=== PATIENT | male | born 1970 ===

== ENCOUNTER 2019-04-26 12:29 | Inpatient (IN) | payer OTHER, SELFPAY ==
[2019-04-12 07:34] VITALS: BMI 38.0
[2019-04-26] VITALS (20 sets, daily range): BP systolic 121–175; BP diastolic 71–108; PULSE 81–105; RESP 11–21; TEMP 36.1–36.7; O2SAT 93–99; BMI 36.9
--- NOTE | 2019-04-26 | DI.RAD.S_ITS ---
PROCEDURE: XR CERVICAL SPINE 2V OR 3V INDICATIONS: C5-6, C6-7 ACDF TECHNIQUE: 3 view(s) of the cervical spine were acquired. COMPARISON: [facility] Outside Film, RG, SPINE CERVICAL MIN 4VW, 01/03/2019, 15:09. [facility] Outside [facility], MR, MR CERVICAL SPINE WITHOUT CONTRAST, 01/03/2019, 15:17. [facility], CR, XR CERVICAL SPINE 2 OR 3 VIEWS, 02/28/2019, 16:35. FINDINGS: 3 intraoperative fluoroscopy images demonstrate discectomy and anterior fusion at C5-C6 and C6-C7. IMPRESSION: Discectomy and anterior fusion at C5-C6 and C6-C7. Dictated by: Bella Alfonso M.D. on 04/26/2019 at 16:34 Approved by: Bella Alfonso M.D. on 04/26/2019 at 16:35
--- NOTE | 2019-04-26 13:13 | PM.PREOP ---
Pre-operative Note Interval Note History & Physical reviewed/Exam performed by Physician: Yes Changes to H&P: No
[2019-04-26] MEDS: LACTATED RINGERS 1,000 ML 42 ML IV ×2 (13:14→15:32)
[2019-04-26] MEDS: MIDAZOLAM 2 MG/2 ML VIAL IV (13:49)
[2019-04-26] MEDS: CEFAZOLIN 2 GM/100 ML FROZ.PIGGY IV (14:00)
--- NOTE | 2019-04-26 14:26 | SUR.OPER ---
Supine, head on gel donut. Arms padded with gel pads, tucked at sides, towel roll under shoulders. Safety belt at thigh. Legs uncrossed.
[2019-04-26] MEDS: BUPIVACAINE 0.25% W/ EPI 30 ML VIAL INJ (15:01)
--- NOTE | 2019-04-26 16:39 | P.OP_ITS ---
Operative Date/Time/Diagnoses Date of procedure: 04/26/19 Time of procedure: 13:39 Pre-op diagnosis: 1. C5-6, C6-7 spinal stenosis 2. C5-6, C6-7 spondylosis with radiculopathy Post-op diagnosis: same Procedure & Clinicians Procedure: 1. C5-6 C6-7 anterior cervical diskectomy and fusion 2. C5-6 C6-7 anterior interbody cage placement 3. C5-6 C6-7 anterior instrumentation with plate and screw placement in C5-C6 and C7 vertebrae 4. Utilization of microsurgical technique and operating microscope Same procedure as scheduled: Yes Indications: Patient has been having chronic neck pain and worsening cervical radiculopathy. Patient failed multiple conservative management with worsening pain weakness and numbness in her upper extremity. Patient has been having difficulty performing activity of daily living. After discussing risks benefits of treatment options, patient elected proceed with surgery. Surgeon: Angela Wild Road Mixer Operator: Lydia Alvarado Click Yes if Unassisted: No Anesthesia Type: General Operative Notes Closure Type: primary Specimen(s): none sent Prosthetic devices, grafts, tissues, transplants, or devices: Globus extend plate, PEEK cages Estimated Blood Loss (mL): 30 Blood products transfused: none Procedure in detail: Patient was seen in the preoperative area. Risks and benefits of the surgery was discussed with the patient. Operative consent was obtained and placed in the chart. Patient was then taken to the operative room. Prophylactic antibiotic was given less than 0.5 hr prior to skin incision. General anesthesia was administered. Patient was placed into a supine position on her radiolucent table. Bilateral shoulders were taped down to allow proper C- arm imaging. Anterior cervical area was prepped and draped in a sterile fashion. Time-out was performed at this time. Using lateral C-arm imaging, the level between C5 and C7 was identified and marked on patient's neck. A oblique incision from midline towards medial border of sternocleidomastoid muscle was made. The platysma muscle was incised in line with skin incision. Metzenbaum scissor was used to develop the plane between the medial border of sternocleidomastoid d and the strap muscles medially. The carotid sheath and its contents were identified and protected behind the hand- held retractor during the entire case. The plane between the carotid sheath and strap muscles was developed with Metzenbaum scissors. Dissection was made down to the level of the anterior cervical fascia. Longus colli muscle was incised on the anterior aspect of vertebral bodies bilaterally from C5-C7. Spinal needle was placed into the C5-6 disc space and confirmed with lateral C-arm imaging. Using microsurgical technique and operative microscope, anterior cervical diskectomy was performed at C5-6 and C6-7 level. This was done by removing the disc material, removing the anterior and posterior osteophytes posterior longitudinal ligaments along with performing bilateral foraminotomies at both levels. Patient was found to have severe central and foraminal stenosis at both levels. Patient's stenosis was fully decompressed after decompression was completed. After the diskectomy was completed, 2 anterior interbody cages were obtained. The cages were packed with DBMl bone grafting material. One cage each along with the bone grafting material was then packed into the interbody spaces from C5-C7 with one cage into each interbody level. After the cages were placed, the anterior cervical plate was stabilized to the C5-C7 vertebrae using 2 screws at each each level. Total 6 screws were placed. After confirming placement of the hardware with AP and lateral C-arm imaging, the screws were locked into the plate using the locking mechanism and torque limiting screwdriver. After the hardware was placed and confirmed with AP and lateral C-arm imaging, the wound was irrigated with sterile normal saline. The platysma muscle and the subcutaneous tissue was closed with 2-0 Vicryl. The skin was closed with 4-0 Monocryl and Steri-Strips. Patient tolerated the procedure well. Patient was transferred recovery room in stable condition. There were no complications. Complications: none Post-operative Condition: stable Disposition: PACU Plan for aftercare: Admit to inpatient hospital
[2019-04-26] MEDS: fentaNYL 100 MCG/2 ML INJ 50 MCG IV (17:04)
[2019-04-26] MEDS: HYDROMORPHONE 2 MG INJ 0.5 MG IV (17:14)
[2019-04-26] MEDS: hydrOXYzine 50 MG/ML INJ 25 MG IM (17:27)
[2019-04-26] MEDS: ACETAMINOPHEN 325 MG TABLET 650 MG PO (20:00)
[2019-04-26] MEDS: SODIUM CHLORIDE 0.9% 1,000 ML 100 ML IV (20:00)
[2019-04-26] MEDS: HYDROCODONE/ACET 5/325 TABLET 2 TAB PO (20:00)
[2019-04-26] MEDS: HYDROMORPHONE 1 MG INJ 0.5 MG IV (20:01)
[2019-04-26] MEDS: SENNOSIDES 8.6 MG TABLET 17.2 MG PO (20:19)
[2019-04-26] MEDS: DOCUSATE 100 MG CAPSULE PO (20:19)
--- NOTE | 2019-04-26 23:44 | PC.NURSE ---
Shift summary-1800- Pt arrived to room 211 from PACU via bed. A/O x4 and drowsy. 93% 3L nc, LS clear and dim. Anterior neck gauze/tegaderm drsg CDI, wearing soft collar for comfort. CIWA-0. Louisa, at bedside. LFA NS @ 100. Using urinal indep in bed. Pt reports current smoker and possibly accept a 7mg jayjay patch tomorrow if needed. reports had a patch before, but make him vomit, which may be related to a too high dose patch. BT+, denies nausea, tolerating fluids and food. Call light in reach and bed alarm on.
[2019-04-27] VITALS: BP 101/63; PULSE 104; RESP 16; TEMP 36.8; O2SAT 94
[2019-04-27] MEDS: HYDROCODONE/ACET 5/325 TABLET 2 TAB PO ×3 (00:44→09:35)
[2019-04-27] MEDS: CEFAZOLIN 2 GM/100 ML FROZ.PIGGY IV ×2 (00:46→09:35)
[2019-04-27] MEDS: SODIUM CHLORIDE 0.9% 1,000 ML 100 ML IV (04:50)
[2019-04-27 05:00] VITALS: BP 116/68; PULSE 95; RESP 16; TEMP 36.7; O2SAT 95
[2019-04-27] MEDS: HYDROMORPHONE 1 MG INJ 0.5 MG IV (05:47)
[2019-04-27 08:17] VITALS: BP 146/99; PULSE 92; RESP 18; TEMP 36.4; O2SAT 94
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
[2019-04-27] MEDS: DOCUSATE 100 MG CAPSULE PO (09:36)
--- NOTE | 2019-04-27 09:55 | ST.IPSCREEN ---
Patient screened per ACDF protocol. Provided verbal and written education regarding safe swallow precautions and voice related changes with present in room. Patient expressed he has had some difficulty getting foods down, but was able to eat breakfast. Reports colder foods are soothing and ordered a smoothie. Recommend patient consume softer textures and advance as tolerated. Discussed flexible straw use for maintaining posture and avoiding neck extension.
[2019-04-27] MEDS: ACETAMINOPHEN 325 MG TABLET 650 MG PO (10:18)
[2019-04-27] MEDS: OXYCODONE IR 10 MG TABLET PO ×2 (10:18→13:47)
[2019-04-27] MEDS: hydrOXYzine pamoate 25 MG CAPSULE PO (10:19)
[2019-04-27 11:25] VITALS: BP 119/71; PULSE 93; RESP 16; TEMP 37.1; O2SAT 93
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
--- NOTE | 2019-04-27 12:42 | P.DS_ITS ---
History of Present Illness History of Present Illness Date Patient Seen: 04/27/19 Time Patient Seen: 10:00 Chief complaint: [id number] C5-7 ACDF Narrative: Patient has been having chronic neck pain and worsening cervical radiculopathy. Patient failed multiple conservative management with worsening pain weakness and numbness in her upper extremity. Patient has been having difficulty performing activity of daily living. After discussing risks benefits of treatment options, patient elected proceed with surgery. Post op day 1 s/p ACDF with Dr. Wild. No acute events overnight. Patient complains of poor pain control. Switched from norco to oxycodone and vistaril. Aware of itching side effect. No complaints of itching before discharge. Patient mobilizing with PT. Voiding without difficulty. Patient denies fever, chills, nausea, vomiting, chest pain, shortness of breath, numbness, tingling. Discharge Providers Provider Date of admission: 04/26/19 12:29 Discharge Date: 04/27/19 Consults: 04/12/19 08:45 Consult to Anesthesiology Routine Comment: Consulting Provider: Anesthesiologist Reason for consultation: Surgeon requested re: Other, Difficult intubation Consult to Respiratory Therapy Evaluate & Treat Comment: Physician Instructions: Evaluate and treat 04/26/19 17:50 Consult to Occupational Therapy Evaluate & Treat Comment: Physician Instructions: Evaluate and treat Consult to Physical Therapy Evaluate & Treat Comment: Physician Instructions: Evaluate and Treat 04/27/19 09:41 Consult to Physical Therapy Evaluate & Treat Comment: FWW for home use for ambulation Physician Instructions: Evaluate and Treat Discharge provider: Rodney Powers PA-C Summary Hospital Course Discharge Diagnosis: s/p ACDF obesity acid reflux Hospital Course: Patient admitted s/p ACDF with Dr. Wild. Hospital course was notable for poor pain control with norco. Was switched to oxycodone and vistaril which managed the pain. POD 1 patient was ready for discharge home with assistance from spouse. Patient mobilizing with PT prior to discharge. Patient voiding and eating without difficulty or assistance. Prescription given for oxycodone, vistaril and tylenol. Exam Vital Signs (past 8 hours): - 04/27/19 05:00 04/27/19 08:17 Temperature 98.1 F 97.6 F Pulse Rate 95 H 92 H Respiratory Rate 16 18 Blood Pressure 116/68 146/99 H Pulse Oximetry 95 94 Fraction of Inspired Oxygen 21 Oxygen Delivery Method Room Air Oxygen Flow Rate 0 Narrative Exam Narrative: 49 year old male is sitting in chair comfortably, in no apparent distress. Dressing CDI, soft collar. Sensory function grossly intact to light touch in UE/LE, bl. Radial pulse 2+ bl. Dorsalis pedis 2+ bl. Calves warm, soft, compressible, nttp. 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 Patient able to actively dorsiflex/plantar flex bl. Discharge Plan Discharge Plan Patient Disposition: Home Discharge Med Rec/Prescriptions Prescriptions: New oxycodone 10 mg tablet 10 mg PO Q4-6H PRN (Reason: pain) Qty: 30 RF: 0 hydroxyzine pamoate [Vistaril] 25 mg capsule 25 mg PO TID PRN (Reason: muscle spasms) Qty: 30 RF: 0 acetaminophen [Tylenol Extra Strength] 500 mg tablet 500 mg PO Q4H PRN (Reason: pain (scale score 4-6)) Qty: 60 RF: 0 Follow up/Referrals: Angela Wild MD [Physician] - As previously scheduled Provider Discharge Instructions Diet: Regular Activity: no excessive lifting, bending, twisting. soft collar for comfort Cold/Heat Therapy: continue cold/heat therapy as needed Skin/Wound/Dressing Care Report to your healthcare provider any signs of infection, such as:: chills, fever, increased pain, unusual drainage and unusual redness Dressing: keep dressing dry. if saturated contact office. Visit Report/Discharge Packet Instructions: DI for Constipation, DI for Anterior Cervical Discectomy and Fusion Stand Alone Forms: Surgery Discharge Discharges patient from system. Discharge Date/Time: 04/27/19 14:30 Quality VTE Deep Vein Thrombosis/Pulmonary Embolism Present on Admission: No
--- NOTE | 2019-04-27 13:05 | CM.IDA ---
Initial DCP Assessment Note: Pt is a 49 yo male, resident of [place], now POD#1 from spinal/cervical surgery w/ Dr Wild PCP: [facility] Payer: [employer]. Reviewed chart, pt discussed in multidisciplinary rounds this morning. Therapy has cleared pt for return home w/family to assist and pt has planned for home, DC order from Ortho PA has already been initiated this morning. Attempted to meet w/pt and he was using the BR indp, at bedside and eager to take pt home today. No needs expected from DC planning team although will remain available in case this changes today. MEME Keller
== END 2019-04-27 14:30 | disposition home or self-care (01) | DRG 473 ==
PROVIDERS: Admitting Provider Orthopaedic Surgery Orthopaedic Surgery of the Spine; Visit Provider Orthopaedic Surgery Orthopaedic Surgery of the Spine
PROC: 0RG20A0 Fusion of 2 or more Cervical Vertebral Joints with Interbody Fusion Device, Anterior Approach, Anterior Column, Open Approach (ICD-10-PCS; principal; 2019-04-26 14:15)
DX: M48.02 Spinal stenosis, cervical region (principal); M47.22 Other spondylosis with radiculopathy, cervical region; E66.9 Obesity, unspecified; K21.9 Gastro-esophageal reflux disease without esophagitis; F17.210 Nicotine dependence, cigarettes, uncomplicated; Z68.36 Body mass index [BMI] 36.0-36.9, adult; V49.9XXA Car occupant (driver) (passenger) injured in unspecified traffic accident, initial encounter
CPT/HCPCS: 72040; 76000; 97161; 97165; 97530; 97535; C1776; J0690; J1100; J1170; J2250; J2405; J2704; J3010; J3410